=== PATIENT | male | born 1955 | race African-American/Black ===

== ENCOUNTER 2016-05-13 18:14 | Inpatient (IN) | payer MEDICAID ==
[~2016-05-13] VITALS: Ht 180.3 cm; Wt 91.2 kg
[2016-05-13] MEDS ORDERED: GLIPIZIDE5 MG ORAL (18:43)
[2016-05-13] MEDS ORDERED: METFORMIN HCL1000 M1 ORAL (18:43)
[2016-05-13 19:04] VITALS: BP 161/87
[2016-05-13] MEDS ORDERED: Heparin 5000 units/ml inj IV ONE (19:15)
[2016-05-13 19:19] LABS: BASOPHILS % (AUTO) 2.1 % (0.0-2.0); LYMPHOCYTES % (AUTO) 39.4 % (20.0-45.0); MEAN CORPUSCULAR HEMOGLOBIN 29.1 PG (27.0-31.0); MEAN CORPUSCULAR HGB CONC 31.7 G/DL (32.0-36.0); MEAN CORPUSCULAR VOLUME 92 FL (80-99); MEAN PLATELET VOLUME 8.4 FL (6.5-10.1); MONOCYTES % (AUTO) 8.2 % (1.0-10.0); NEUTROPHILS % (AUTO) 49.2 % (45.0-75.0); PLATELET COUNT 200 K/UL (150-450); RED BLOOD COUNT 5.43 M/UL (4.70-6.10); RED CELL DISTRIBUTION WIDTH 12.2 % (11.6-14.8); WHITE BLOOD COUNT 5.3 K/UL (4.8-10.8)
[2016-05-13] MEDS ORDERED: Nitroglycerin Subl 0.4mg tab (Bottle Of 25) SL ONE (19:30)
[2016-05-13 19:36] LABS: PROTHROMBIN TIME 10.5 SEC (9.30-11.50)
[2016-05-13 19:44] LABS: TROPONIN I < 0.30 ng/mL (<=0.30)
[2016-05-13 19:47] LABS: ALANINE AMINOTRANSFERASE 15 U/L (3-41); ALBUMIN/GLOBULIN RATIO 1.3 (1.0-2.7); ANION GAP 11 (5-15); ASPARTATE AMINO TRANSFERASE 18 U/L (5-40); CALCIUM 9.2 mg/dL (8.6-10.2); CARBON DIOXIDE 27 mEQ/L (20-30); CHLORIDE 98 mEQ/L (98-107); CREATININE 1.2 mg/dL (0.7-1.2); GLOMERULAR FILTRATION RATE > 60 mL/min (>60); HEMOLYSIS 4; POTASSIUM 4.4 mEQ/L (3.4-4.9); SODIUM 136 mEQ/L (135-145); TOTAL PROTEIN 7.3 g/dL (6.6-8.7)
[2016-05-13 20:10] LABS: CKMB < 1.5 ng/mL (< 6.7)
[2016-05-13 20:16] VITALS: BP 137/82
[2016-05-13 22:39] VITALS: BP 133/79
--- NOTE | 2016-05-13 23:28 | Emergency Room Report ---
History of Present Illness General Chief Complaint: Dyspnea/Respdistress Source: Patient Present Illness HPI The patient is a 60-year-old male presented after having intermittent chest pain for several weeks. The patient was noted to have increased frequency of symptoms. Patient stated that he began having a constant pain earlier in the day. The patient had the pain onset during light activity he had prior history of hypertension. As well as diabetic. Allergies: Coded Allergies: No Known Allergies (Unverified , 05/13/16) Patient History Past Medical History: see triage record Reviewed Nursing Documentation: PMH: Agreed, PSxH: Agreed Nursing Documentation-PMH Past Medical History: No History, Except For Hx Diabetes: Yes - Type II Review of Systems All Other Systems: negative except mentioned in HPI Physical Exam Vital Signs Date Time Temp Pulse Resp B/P Pulse Ox O2 Delivery O2 Flow Rate FiO2 05/13/16 18:38 98.1 91 16 163/100 99 Room Air Sp02 EP Interpretation: reviewed, normal General Appearance: normal inspection, well appearing, no apparent distress, alert, GCS 15 Head: atraumatic ENT: normal ENT inspection, hearing grossly normal, normal voice Neck: normal inspection, full range of motion, supple, no bony tend Respiratory: normal inspection, lungs clear, normal breath sounds, no respiratory distress, no retraction, no wheezing Cardiovascular #1: regular rate, rhythm, no edema Gastrointestinal: normal inspection, normal bowel sounds, non tender, soft, no guarding, no hernia Genitourinary: no CVA tenderness Musculoskeletal: normal inspection, back normal, normal range of motion Neurologic: normal inspection, alert, oriented x3, responsive, water resource agent III-XII nml as tested, speech normal Psychiatric: normal inspection, judgement/insight normal, mood/affect normal Skin: normal inspection, normal color, no rash Medical Decision Making Diagnostic Impression: Primary Impression: Chest pain Additional Impression: Unstable angina ER Course Patient is a 60-year-old male who presented for chest pain. Differential diagnosis included but was not limited to acute coronary syndrome, pulmonary embolism, pneumonia, aortic dissection, shingles, pneumothorax, aortic dissection, esophageal rupture, pericarditis. Because of complexity of patient' s case laboratory testing and imaging studies were ordered. I laboratory testing was notable for negative troponin.The patient was noted to improvement in his pain after nitroglycerin and was pain-free The patient was noted to have signs consistent with a coronary syndrome. Initial EKG showed inferior T wave inversion. Repeat EKGs after nitroglycerin and aspirin showed correction of the T wave inversion. The patient was discussed with Dr. Lunsford for inpatient management. Labs Test 05/13/16 19:06 05/13/16 23:25 White Blood Count 5.3 K/UL (4.8-10.8) Red Blood Count 5.43 M/UL (4.70-6.10) Hemoglobin 15.8 G/DL (14.2-18.0) Hematocrit 49.9 % (42.0-52.0) Mean Corpuscular Volume 92 FL (80-99) Mean Corpuscular Hemoglobin 29.1 PG (27.0-31.0) Mean Corpuscular Hemoglobin Concent 31.7 G/DL (32.0-36.0) Red Cell Distribution Width 12.2 % (11.6-14.8) Platelet Count 200 K/UL (150-450) Mean Platelet Volume 8.4 FL (6.5-10.1) Neutrophils (%) (Auto) 49.2 % (45.0-75.0) Lymphocytes (%) (Auto) 39.4 % (20.0-45.0) Monocytes (%) (Auto) 8.2 % (1.0-10.0) Eosinophils (%) (Auto) 1.0 % (0.0-3.0) Basophils (%) (Auto) 2.1 % (0.0-2.0) Prothrombin Time 10.5 SEC (9.30-11.50) Prothromb Time International Ratio 1.0 (0.9-1.1) Activated Partial Thromboplast Time 26 SEC (23-33) D-Dimer 215 ng/mL (<500) Sodium Level 136 mEQ/L (135-145) Potassium Level 4.4 mEQ/L (3.4-4.9) Chloride Level 98 mEQ/L (98-107) Carbon Dioxide Level 27 mEQ/L (20-30) Anion Gap 11 (5-15) Blood Urea Nitrogen 14 mg/dL (7-23) Creatinine 1.2 mg/dL (0.7-1.2) Estimat Glomerular Filtration Rate > 60 mL/min (>60) Glucose Level 261 mg/dL (74-106) Calcium Level 9.2 mg/dL (8.6-10.2) Total Bilirubin 0.3 mg/dL (0.0-1.2) Aspartate Amino Transf (AST/SGOT) 18 U/L (5-40) Alanine Aminotransferase (ALT/SGPT) 15 U/L (3-41) Alkaline Phosphatase 77 U/L (40-129) Total Creatine Kinase 161 U/L (38-174) Creatine Kinase MB < 1.5 ng/mL (< 6.7) Creatine Kinase MB Relative Index Troponin I < 0.30 ng/mL (<=0.30) Total Protein 7.3 g/dL (6.6-8.7) Albumin 4.2 g/dL (3.5-5.2) Globulin 3.1 g/dL Albumin/Globulin Ratio 1.3 (1.0-2.7) EKG Diagnostic Results Rate: normal Rhythm: NSR ST Segments: other - nonspecific st changes. inferior twave inversion Chest X-Ray Diagnostic Results EP Interpretation: Yes Findings: no consolidation, no effusion, no pneumothorax, no acute cardiopulmonary disease Number of Views: 1 Last Vital Signs Date Time Temp Pulse Resp B/P Pulse Ox O2 Delivery O2 Flow Rate FiO2 05/13/16 22:39 98.2 82 15 133/79 99 Room Air Status: improved Disposition: ADMITTED INPATIENT Condition: Serious Referrals: NOT CHOSEN NAKITA/,REFERRING (PCP) Daryn Kitchen May 13, 2016 23:28
[2016-05-13 23:43] LABS: APPEARANCE,URINE CLEAR; KETONES,URINE NEGATIVE (NEGATIVE); LEUKOCYTE ESTERASE ,URINE 1+ (NEGATIVE); NITRITE,URINE NEGATIVE (NEGATIVE); PH,URINE 5 (4.5-8.0); PROTEIN,URINE NEGATIVE (NEGATIVE); UROBILINOGEN,URINE NORMAL MG/DL (0.0-1.0)
[2016-05-14] VITALS: BP 144/93
[2016-05-14 00:24] LABS: BACTERIA,URINE OCCASIONAL /HPF; SQUAMOUS EPITHELIAL CELL,UR OCCASIONAL /LPF (NONE/OCC)
[2016-05-14] MEDS ORDERED: Norco 5mg/325mg tab ORAL PRN (03:30)
[2016-05-14 04:20] VITALS: BP 146/98
[2016-05-14] MEDS: GlipiZIDE 5mg tab ORAL SCH ×2 (06:12→17:12)
[2016-05-14] MEDS: metFORMIN 500mg tab ORAL SCH ×2 (06:13→17:12)
[2016-05-14] MEDS: Heparin 5000 units/ml inj SUBQ SCH ×3 (06:16→21:48)
[2016-05-14] MEDS: NovoLOG Insulin Flexpen SUBQ SCH ×4 (06:31→21:47)
[2016-05-14 07:55] VITALS: BP 137/91
[2016-05-14 09:18] LABS: BASOPHILS % (AUTO) 2.4 % (0.0-2.0); EOSINOPHILS % (AUTO) 1.1 % (0.0-3.0); LYMPHOCYTES % (AUTO) 43.9 % (20.0-45.0); MEAN CORPUSCULAR HEMOGLOBIN 29.1 PG (27.0-31.0); MEAN CORPUSCULAR HGB CONC 32.5 G/DL (32.0-36.0); MEAN CORPUSCULAR VOLUME 90 FL (80-99); MONOCYTES % (AUTO) 12.4 % (1.0-10.0); NEUTROPHILS % (AUTO) 40.2 % (45.0-75.0); PLATELET COUNT 189 K/UL (150-450); RED BLOOD COUNT 5.26 M/UL (4.70-6.10); RED CELL DISTRIBUTION WIDTH 11.9 % (11.6-14.8); WHITE BLOOD COUNT 4.4 K/UL (4.8-10.8)
[2016-05-14 09:35] LABS: ALANINE AMINOTRANSFERASE 19 U/L (3-41); ALBUMIN/GLOBULIN RATIO 1.3 (1.0-2.7); ANION GAP 13 (5-15); ASPARTATE AMINO TRANSFERASE 17 U/L (5-40); CALCIUM 9.1 mg/dL (8.6-10.2); CARBON DIOXIDE 27 mEQ/L (20-30); CHLORIDE 100 mEQ/L (98-107); CHOLESTEROL 152 mg/dL (< 200); CHOLESTEROL/HDL RATIO 3.7 (3.3-4.4); GLOMERULAR FILTRATION RATE > 60 mL/min (>60); HEMOLYSIS 6; LDL CHOLESTEROL (CALC.) 92 mg/dL (60-99); MAGNESIUM 1.9 mg/dL (1.7-2.5); PHOSPHORUS 2.7 mg/dL (2.5-4.8); POTASSIUM 4.2 mEQ/L (3.4-4.9); SODIUM 140 mEQ/L (135-145); TOTAL PROTEIN 6.9 g/dL (6.6-8.7)
[2016-05-14 11:39] VITALS: BP 148/96
[2016-05-14] MEDS ORDERED: Influenza Virus Vaccine 0.5ml IM ONE (12:00)
[2016-05-14] MEDS ORDERED: Pneumococcal Vaccine 25mcg/0.5ml IM ONE (12:30)
[2016-05-14 13:35] LABS: TROPONIN I < 0.30 ng/mL (<=0.30)
--- NOTE | 2016-05-14 13:37 | History & Physical ---
History and Physical History & Physicial Dictated for Int Med-Dr Lunsford no. [id number]. MIROSLAVA MAY May 14, 2016 13:37
--- NOTE | 2016-05-14 14:30 | Cardiac Electrophysiology PN ---
Subjective Subjective [id number]. CP. No CT. NIDDM. Newly diagnosed HTN Stress test in am. Lisinopril, echo Objective Last 24 Hour Vital Signs Date Time Temp Pulse Resp B/P Pulse Ox O2 Delivery O2 Flow Rate FiO2 05/14/16 11:39 97.6 87 20 148/96 100 Room Air 05/14/16 08:00 82 05/14/16 07:55 97.3 75 20 137/91 100 Room Air 05/14/16 04:20 97.0 72 20 146/98 98 Room Air 05/14/16 04:00 77 05/14/16 01:15 82 05/14/16 00:50 98.2 78 16 128/80 100 Room Air 05/14/16 00:00 98.0 75 20 144/93 98 Room Air 05/13/16 22:39 98.2 82 15 133/79 99 Room Air 05/13/16 20:16 98.2 82 17 137/82 99 Room Air 05/13/16 19:20 160/88 05/13/16 19:06 83 17 Room Air 05/13/16 19:04 97.9 83 17 161/87 100 Room Air 05/13/16 18:38 98.1 91 16 163/100 99 Room Air Laboratory Tests Test 05/13/16 19:06 05/13/16 23:25 05/14/16 08:35 05/14/16 08:45 White Blood Count 5.3 K/UL (4.8-10.8) 4.4 K/UL (4.8-10.8) L Red Blood Count 5.43 M/UL (4.70-6.10) 5.26 M/UL (4.70-6.10) Hemoglobin 15.8 G/DL (14.2-18.0) 15.3 G/DL (14.2-18.0) Hematocrit 49.9 % (42.0-52.0) 47.2 % (42.0-52.0) Mean Corpuscular Volume 92 FL (80-99) 90 FL (80-99) Mean Corpuscular Hemoglobin 29.1 PG (27.0-31.0) 29.1 PG (27.0-31.0) Mean Corpuscular Hemoglobin Concent 31.7 G/DL (32.0-36.0) L 32.5 G/DL (32.0-36.0) Red Cell Distribution Width 12.2 % (11.6-14.8) 11.9 % (11.6-14.8) Platelet Count 200 K/UL (150-450) 189 K/UL (150-450) Mean Platelet Volume 8.4 FL (6.5-10.1) 9.0 FL (6.5-10.1) Neutrophils (%) (Auto) 49.2 % (45.0-75.0) 40.2 % (45.0-75.0) L Lymphocytes (%) (Auto) 39.4 % (20.0-45.0) 43.9 % (20.0-45.0) Monocytes (%) (Auto) 8.2 % (1.0-10.0) 12.4 % (1.0-10.0) H Eosinophils (%) (Auto) 1.0 % (0.0-3.0) 1.1 % (0.0-3.0) Basophils (%) (Auto) 2.1 % (0.0-2.0) H 2.4 % (0.0-2.0) H Prothrombin Time 10.5 SEC (9.30-11.50) Prothromb Time International Ratio 1.0 (0.9-1.1) Activated Partial Thromboplast Time 26 SEC (23-33) D-Dimer 215 ng/mL (<500) Sodium Level 136 mEQ/L (135-145) 140 mEQ/L (135-145) Potassium Level 4.4 mEQ/L (3.4-4.9) 4.2 mEQ/L (3.4-4.9) Chloride Level 98 mEQ/L (98-107) 100 mEQ/L (98-107) Carbon Dioxide Level 27 mEQ/L (20-30) 27 mEQ/L (20-30) Anion Gap 11 (5-15) 13 (5-15) Blood Urea Nitrogen 14 mg/dL (7-23) 13 mg/dL (7-23) Creatinine 1.2 mg/dL (0.7-1.2) 1.0 mg/dL (0.7-1.2) Estimat Glomerular Filtration Rate > 60 mL/min (>60) > 60 mL/min (>60) Glucose Level 261 mg/dL (74-106) H 160 mg/dL (74-106) #H Calcium Level 9.2 mg/dL (8.6-10.2) 9.1 mg/dL (8.6-10.2) Total Bilirubin 0.3 mg/dL (0.0-1.2) 0.5 mg/dL (0.0-1.2) Aspartate Amino Transf (AST/SGOT) 18 U/L (5-40) 17 U/L (5-40) Alanine Aminotransferase (ALT/SGPT) 15 U/L (3-41) 19 U/L (3-41) Alkaline Phosphatase 77 U/L (40-129) 70 U/L (40-129) Total Creatine Kinase 161 U/L (38-174) Creatine Kinase MB < 1.5 ng/mL (< 6.7) Creatine Kinase MB Relative Index Troponin I < 0.30 ng/mL (<=0.30) < 0.30 ng/mL (<=0.30) Total Protein 7.3 g/dL (6.6-8.7) 6.9 g/dL (6.6-8.7) Albumin 4.2 g/dL (3.5-5.2) 4.0 g/dL (3.5-5.2) Globulin 3.1 g/dL 2.9 g/dL Albumin/Globulin Ratio 1.3 (1.0-2.7) 1.3 (1.0-2.7) Urine Color Yellow Urine Appearance Clear Urine pH 5 (4.5-8.0) Urine Specific [place] 1.020 (1.005-1.035) Urine Protein Negative (NEGATIVE) Urine Glucose (UA) 3+ (NEGATIVE) H Urine Ketones Negative (NEGATIVE) Urine Occult Blood Negative (NEGATIVE) Urine Nitrite Negative (NEGATIVE) Urine Bilirubin Negative (NEGATIVE) Urine Urobilinogen Normal MG/DL (0.0-1.0) Urine Leukocyte Esterase 1+ (NEGATIVE) H Urine RBC 2-4 /HPF (0 - 0) H Urine WBC 10-15 /HPF (0 - 0) H Urine Squamous Epithelial Cells Occasional /LPF Urine Bacteria Occasional /HPF (NONE) Urine Opiates Screen Negative (NEGATIVE) Urine Barbiturates Screen Negative (NEGATIVE) Phencyclidine (PCP) Screen Negative (NEGATIVE) Urine Amphetamines Screen Negative (NEGATIVE) Urine Benzodiazepines Screen Negative (NEGATIVE) Urine Cocaine Screen Negative (NEGATIVE) Urine Marijuana (THC) Screen Negative (NEGATIVE) Phosphorus Level 2.7 mg/dL (2.5-4.8) Magnesium Level 1.9 mg/dL (1.7-2.5) Triglycerides Level 95 mg/dL (< 150) Cholesterol Level 152 mg/dL (< 200) LDL Cholesterol 92 mg/dL (60-99) HDL Cholesterol 41 mg/dL (> 60) Cholesterol/HDL Ratio 3.7 (3.3-4.4) YAMILETH FRANKEL May 14, 2016 14:30
--- NOTE | 2016-05-14 15:03 | Cardiology Report ---
APPROVED REPORT EKG Measurement Heart [id number] Normal sinus rhythm Nonspecific ST and T wave abnormality Abnormal ECG
[2016-05-14 16:00] VITALS: BP 144/91
--- NOTE | 2016-05-14 18:18 | History and Physical Report ---
DATE OF ADMISSION: 05/13/2016 CHIEF COMPLAINT: The patient is a 60-year-old male with history of diabetes, who presents with chief complaint of chest pain. HISTORY OF PRESENT ILLNESS: The patient has a history of diabetes. The patient has not been taking his glipizide for about seven to eight months. The patient states he lost his insurance. History of present illness began on 05/11/2016. The patient states he was watching a ball games on TV. The patient began to experience on and off chest pain. Chest pain is substernal. The patient states the chest pain feels like "gas". The patient presented to [place] emergency room. The patient was admitted for chest pain to rule out acute myocardial infarction. PAST MEDICAL HISTORY: Significant for type 2 diabetes. PAST SURGICAL HISTORY: The patient denies. MEDICATIONS: Current medications, 1. Metformin 1000 mg one tablet p.o. twice daily. 2. Glipizide 5 mg one tablet p.o. twice daily, however, the patient is not taking glipizide in seven to eight months. ALLERGIES: No known drug allergies. SOCIAL HISTORY: The patient has a long time girlfriend, who is present during the interview. The patient is unemployed. The patient admits to tobacco use of one-quarter pack per day. The patient admits to rare alcohol use. FAMILY HISTORY: Significant for colon cancer in a sibling. Family history negative for diabetes or coronary artery disease. REVIEW OF SYSTEMS: Constitutional: The patient denies weight loss or weight gain. The patient denies fevers or chills. HEENT: The patient denies ear or throat pain. Cardiovascular: The patient complains of chest pain, as above. The patient denies palpitations. Abdomen: The patient denies nausea, vomiting, or constipation. Genitourinary: The patient denies dysuria or increased frequency of urination. Neuromuscular: The patient seizures or generalized weakness. PHYSICAL EXAMINATION: VITAL SIGNS: Temperature 97.0 degrees, respirations 20, blood pressure 146/98, and pulse 72. GENERAL: The patient is a well-developed and well-nourished male, in no apparent distress. HEENT: Eyes, pupils are equal and responsive to light and accommodation. Extraocular movements are intact. NECK: Supple without lymphadenopathy. CHEST: Lungs are clear to auscultation bilaterally without wheezes or rales. CARDIOVASCULAR: Regular rhythm and rate. S1 and S2 normal without murmurs, rubs, or gallops. ABDOMEN: Soft, nontender, and nondistended. Positive bowel sounds. No evidence of hepatosplenomegaly. Currently, no rebound or guarding noted. EXTREMITIES: Negative for clubbing, cyanosis, or or edema. RECTAL: Refused. GENITAL: Refused. NEUROLOGIC: Cranial nerves II through XII are grossly intact without focal deficits. Motor strength is 5/5 bilaterally. Deep tendon reflexes 2+ plantar. LABORATORY AND DIAGNOSTIC DATA: WBC 5.3, hemoglobin 15.8, hematocrit 49.9, and platelets 200,000. Sodium 136, potassium 4.4, chloride 98, CO2 25, BUN 14, creatinine 1.2, and glucose elevated at 261. Troponin less than 0.3. Chest x-ray is pending. ASSESSMENT: This is a 60-year-old male 1. Chest pain. 2. Diabetes type 2. TREATMENT: 1. Chest pain. Cardiology consultation with Dr. Nimesh Neumann. A Cardiolite stress test is pending. Serial troponin levels to be run. Chest pain may be secondary to coronary artery disease, as the patient has a risk factor including diabetes. We will follow recommendation of Cardiology. 2. Diabetes type 2. Continue metformin and glipizide as above and NovoLog sliding scale has been instituted. Buster Gallardo M.D. DR: MURALI JOB#: [id number] CC:
--- NOTE | 2016-05-14 19:48 | Consultation ---
DATE OF CONSULTATION: 05/14/2016 CARDIOLOGY CONSULTATION CONSULTING PHYSICIAN: Nimesh Neumann M.D. REFERRING PHYSICIAN: Matthew Lunsford M.D. REASON FOR CONSULTATION: Chest pain. HISTORY OF PRESENT ILLNESS: The patient is a 60-year-old gentleman with history of plf-[id number] diabetes, who presented to the hospital with intermittent chest pain of several weeks duration has become more and more frequent. On day of admission, the patient had constant chest pain that started after a light activity prior to this event. The patient's EKG showed sinus rhythm with nonspecific ST-T wave abnormality. The patient was admitted to rule out myocardial infarction. His blood pressure in the emergency room was also 162/100. PAST MEDICAL HISTORY: Includes nse-[id number] diabetes. FAMILY HISTORY: Noncontributory. SOCIAL HISTORY: He lives at home. Does not smoke or drink alcohol. Denies using any illegal drugs. REVIEW OF SYSTEMS: Review of systems was thoroughly performed and was negative other what was mentioned in history of present illness. PHYSICAL EXAMINATION: VITAL SIGNS: Show blood pressure of 148/96, pulse 87, respirations 20, and temperature 97.6 degrees. HEAD AND NECK: Showed no JVD. LUNGS: Clear. CARDIOVASCULAR: Show regular S1 and S2 with no gallop or murmur. ABDOMEN: Soft and nontender. EXTREMITIES: No pitting edema. LABORATORY AND DIAGNOSTIC DATA: EKG sinus rhythm with nonspecific ST-T wave abnormalities. White count of 4.4, hemoglobin 15.2, hematocrit 47.2, and platelet count 189,000. Sodium 140, potassium 4.2, BUN 30, creatinine 1, and glucose of 160. Troponin is negative x2. ASSESSMENT AND PLAN: 1. Chest pain. The patient was ruled out for myocardial infarction. EKG showed nonspecific ST-T wave abnormality. His urine toxicology screen is negative. In view of patient's newly diagnosed hypertension and diabetes who is scheduled for nuclear stress test for further evaluation. 2. Newly diagnosed hypertension as the patient is on lisinopril as well in view of patient's diabetes. 3. Diabetes on metformin and glipizide. Thank you very much, Dr. Lunsford, for allowing me to participate in the care of this patient. Please do not hesitate to contact me for any questions regarding my evaluation. Nimesh Neumann M.D. DR: CARMEN JOB#: [id number] CC:
[2016-05-14 20:00] VITALS: BP 153/100
[2016-05-15 00:47] VITALS: BP 153/99
[2016-05-15 04:14] VITALS: BP 150/93
[2016-05-15] MEDS: GlipiZIDE 5mg tab ORAL SCH ×2 (06:00→17:46)
[2016-05-15] MEDS: metFORMIN 500mg tab ORAL SCH ×2 (06:00→17:46)
[2016-05-15] MEDS: NovoLOG Insulin Flexpen SUBQ SCH ×3 (06:05→17:47)
[2016-05-15] MEDS: Heparin 5000 units/ml inj SUBQ SCH ×2 (06:05→14:46)
[2016-05-15 08:05] VITALS: BP 128/78
[2016-05-15 08:10] LABS: BASOPHILS % (AUTO) 2.5 % (0.0-2.0); LYMPHOCYTES % (AUTO) 31.1 % (20.0-45.0); MEAN CORPUSCULAR HEMOGLOBIN 30.4 PG (27.0-31.0); MEAN CORPUSCULAR HGB CONC 33.3 G/DL (32.0-36.0); MEAN CORPUSCULAR VOLUME 91 FL (80-99); MEAN PLATELET VOLUME 8.4 FL (6.5-10.1); NEUTROPHILS % (AUTO) 57.4 % (45.0-75.0); PLATELET COUNT 169 K/UL (150-450); RED BLOOD COUNT 5.14 M/UL (4.70-6.10); RED CELL DISTRIBUTION WIDTH 12.3 % (11.6-14.8); WHITE BLOOD COUNT 4.7 K/UL (4.8-10.8)
[2016-05-15 08:24] LABS: TROPONIN I < 0.30 ng/mL (<=0.30)
[2016-05-15 08:31] LABS: ANION GAP 13 (5-15); CALCIUM 9.2 mg/dL (8.6-10.2); CARBON DIOXIDE 25 mEQ/L (20-30); CHLORIDE 100 mEQ/L (98-107); CHOLESTEROL 170 mg/dL (< 200); CHOLESTEROL/HDL RATIO 3.6 (3.3-4.4); GLOMERULAR FILTRATION RATE > 60 mL/min (>60); HEMOLYSIS 8; LDL CHOLESTEROL (CALC.) 103 mg/dL (60-99); POTASSIUM 4.3 mEQ/L (3.4-4.9); SODIUM 138 mEQ/L (135-145)
[2016-05-15] MEDS ORDERED: Lisinopril 10mg tab ORAL SCH (09:00)
[2016-05-15 11:43] VITALS: BP 138/88
--- NOTE | 2016-05-15 15:31 | Diagnostic Imaging Report ---
Indications: 60-year-old male inpatient presents with chest pain. Technique: The examination was supervised by Dr. Bridges. Baseline electrocardiogram was recorded. The patient was exercised on a treadmill per Rickie protocol for a duration of 7 minutes 19 seconds, exceeding target stress level. Continuous electrocardiography, heart rate, blood pressure monitoring performed. Immediate SPECT imaging of the left ventricular myocardium was performed in multiple planes with the patient in supine position, following intravenous administration of 82 mCi 99 M technetium-sestaMIBI. Cinegraphic images were generated for wall motion analysis. Left ventricular ejection fraction was calculated. Similar imaging was performed at rest immediately prior with intravenous administration of 10.8 mCi 99 M technetium-sestaMIBI. Findings: Comparison: None. Both stress and rest images demonstrate left ventricular myocardial perfusion to be intact. No areas of abnormally decreased or absent perfusion are demonstrated. Cinegraphic images demonstrate no areas of wall motion abnormality. Ejection fraction is estimated at 71%. The patient developed no acute complaints or {changes during exercise stress. Supervising customer project manager's conclusions are that clinical response to exercise stress is nonischemic while electrocardiographic response is likewise nonischemic. IMPRESSION: No evidence of exercise-induced left ventricular myocardial ischemia or prior infarct LVEF within normal limits. This correlates with supervising customer project manager's conclusions.
[2016-05-15 16:00] VITALS: BP 132/83
--- NOTE | 2016-05-15 16:20 | Discharge Summary ---
Discharge Summary Hospital Course Date of Admission May 13, 2016 at 21:12 Date of Discharge Admitting Diagnosis Acute Coronary Sydrome HPI Kelvin Kendrick is a 60 year old male who was admitted on May 13, 2016 at 21:12 for Acute Coronary Syndrome Hospital Course Dictated for Int Med-Dr Lunsford no. [id number]. Discharge Discharge Disposition Patient was discharged to Discharge Diagnoses: MIROSLAVA MAY May 15, 2016 16:20
--- NOTE | 2016-05-15 16:26 | Cardiac Electrophysiology PN ---
Assessment/Plan Status Narrative No evidence of exercise-induced left ventricular myocardial ischemia or prior infarct LVEF within normal limits. Assessment/Plan 1. Chest pain. The patient was ruled out for myocardial infarction. EKG showed nonspecific ST-T wave abnormality. His urine toxicology screen is negative.HAd nuclear stress test today that showed no ischemia. 2. Newly diagnosed hypertension Continue lisinopril 3. Diabetes on metformin and glipizide. OK to DC DW Dr Gallardo Subjective Subjective Comfortable in NAD. No chest pain or SOB. HAd nuclear stress test done. Objective Last 24 Hour Vital Signs Date Time Temp Pulse Resp B/P Pulse Ox O2 Delivery O2 Flow Rate FiO2 05/15/16 16:00 97.9 78 18 132/83 98 Room Air 05/15/16 12:00 86 05/15/16 11:43 97.5 75 20 138/88 100 Room Air 05/15/16 09:28 128/78 05/15/16 08:05 97.7 79 20 128/78 100 Room Air 05/15/16 08:00 86 05/15/16 04:14 98.6 87 20 150/93 98 Room Air 05/15/16 04:00 84 05/15/16 00:47 97.9 86 21 153/99 99 Room Air 05/15/16 00:00 84 05/14/16 20:00 98.1 82 19 153/100 99 Room Air 05/14/16 20:00 80 Intake and Output 05/14/16 05/15/16 19:00 07:00 Intake Total 490 ml 240 ml Balance 490 ml 240 ml Intake Oral 490 ml 240 ml # Voids 2 2 Laboratory Tests Test 05/15/16 07:45 White Blood Count 4.7 K/UL (4.8-10.8) L Red Blood Count 5.14 M/UL (4.70-6.10) Hemoglobin 15.6 G/DL (14.2-18.0) Hematocrit 47.0 % (42.0-52.0) Mean Corpuscular Volume 91 FL (80-99) Mean Corpuscular Hemoglobin 30.4 PG (27.0-31.0) Mean Corpuscular Hemoglobin Concent 33.3 G/DL (32.0-36.0) Red Cell Distribution Width 12.3 % (11.6-14.8) Platelet Count 169 K/UL (150-450) Mean Platelet Volume 8.4 FL (6.5-10.1) Neutrophils (%) (Auto) 57.4 % (45.0-75.0) Lymphocytes (%) (Auto) 31.1 % (20.0-45.0) Monocytes (%) (Auto) 8.0 % (1.0-10.0) Eosinophils (%) (Auto) 1.0 % (0.0-3.0) Basophils (%) (Auto) 2.5 % (0.0-2.0) H Sodium Level 138 mEQ/L (135-145) Potassium Level 4.3 mEQ/L (3.4-4.9) Chloride Level 100 mEQ/L (98-107) Carbon Dioxide Level 25 mEQ/L (20-30) Anion Gap 13 (5-15) Blood Urea Nitrogen 11 mg/dL (7-23) Creatinine 1.0 mg/dL (0.7-1.2) Estimat Glomerular Filtration Rate > 60 mL/min (>60) Glucose Level 184 mg/dL (74-106) H Calcium Level 9.2 mg/dL (8.6-10.2) Troponin I < 0.30 ng/mL (<=0.30) Triglycerides Level 99 mg/dL (< 150) Cholesterol Level 170 mg/dL (< 200) LDL Cholesterol 103 mg/dL (60-99) H HDL Cholesterol 47 mg/dL (> 60) Cholesterol/HDL Ratio 3.6 (3.3-4.4) Thyroid Stimulating Hormone (TSH) 3.050 uIU/mL (0.300-4.500) Free Thyroxine 1.00 ng/dL (0.86-1.85) Microbiology Date/Time Source Procedure Growth Status 05/13/16 23:25 Urine,Clean Catch Urine Culture - Preliminary Resulted Objective HEAD AND NECK: Showed no JVD. LUNGS: Clear. CARDIOVASCULAR: Show regular S1 and S2 with no gallop or murmur. ABDOMEN: Soft and nontender. EXTREMITIES: No pitting edema. YAMILETH FRANKEL May 15, 2016 16:26
[2016-05-15] MEDS ORDERED: LISINOPRIL10 MG ORAL (16:43)
[2016-05-15] MEDS ORDERED: NS 275ml ONE (18:04)
--- NOTE | 2016-05-15 21:09 | Cardiology Report ---
APPROVED REPORT EXAM: Two-dimensional and M-mode echocardiogram with Doppler and color Doppler. INDICATION Chest Pain M-Mode DIMENSIONS IVSd1.5 (0.7-1.1cm)Left Atrium (MM)4.6 (1.6-4.0cm) LVDd4.1 (3.5-5.6cm)Aortic Root2.9 (2.0-3.7cm) PWd1.5 (0.7-1.1cm)Aortic Cusp Exc.1.8 (1.5-2.0cm) LVDs2.5 (2.5-4.0cm) PWs2.2 cm Normal left ventricular chamber size, systolic function and wall motion. Left ventricular ejection fraction estimated to be 65 %. Mild left ventricular hypertrophy. Anterior Echo-free space, may be due to pericardial fat or effusion. Mild left atrial enlargement. Right cardiac chamber sizes are within normal limits. Mild focal aortic valve sclerosis with adequate cusp excursion. Mildly thickened mitral valve leaflets with normal excursion. Mitral annulus and aortic root calcification. Normal pulmonic valve structure. Normal tricuspid valve structure. IVC at normal size with physiologic collapse. A color flow and spectral Doppler study was performed and revealed: Trace mitral regurgitation. Mitral diastolic velocities suggest reduced left ventricular relaxation c/w mild LV diastolic dysfunction (Grade I ). Trace tricuspid regurgitation. Tricuspid systolic velocities suggests peak right ventricular systolic pressure of 25 mmHg.
--- NOTE | 2016-05-16 03:37 | Discharge Summary ---
DATE OF ADMISSION: 05/13/2016 DATE OF DISCHARGE: 05/15/2016 ADMITTING DIAGNOSES: 1. Chest pain. 2. Diabetes type 2. DISCHARGE DIAGNOSES: 1. Chest pain. 2. Diabetes type 2. 3. Hypertension. HOSPITAL COURSE BY PROBLEM LIST: 1. Chest pain. A cardiology consultation was obtained by Dr. Nimesh Neumann. The patient underwent a myocardial perfusion nuclear medicine scan on 05/14/2016. Ejection fraction was 71%. There was no ischemia demonstrated. Chest pain was thought to be secondary to reflux or pleuritic-type chest pain. Chest pain is considered to be atypical. The patient to follow up with Dr. Neumann as an outpatient. Chest pain was not due to cardiac ischemia. 2. Diabetes type 2. The patient was placed on metformin 1000 mg one tablet p.o. twice daily. The patient also was placed on glipizide 5 mg one tablet p.o. twice daily. The patient had run out of his glipizide at home. The patient was also placed on a NovoLog sliding scale. Blood sugars were well controlled during hospitalization. The patient is to follow up with Dr. Matthew Lunsford in one week. 3. Hypertension. The patient was placed on lisinopril 10 mg one tablet p.o. daily. Blood pressure is well controlled during hospitalization. DISCHARGE MEDICATIONS: Please refer to discharge medication list. DISCHARGE INSTRUCTIONS: DISPOSITION: The patient was discharged home today, 05/15/2016. FOLLOW UP: The patient is to follow up with Dr. Matthew Lunsford in one week. Buster Gallardo M.D. DR: Isai JOB#: [id number] CC:
--- NOTE | 2016-05-18 10:32 | Diagnostic Imaging Report ---
Indication: SOB, chest pain Technique: One view of the chest Comparison: none Findings: Lungs and pleural spaces are clear. Heart size is normal. Impression: No acute process
== END 2016-05-15 18:05 | disposition home or self-care (01) | DRG 203 ==
LOC: EMR 19:32 → 2E 21:12 → EDBEDREQSVC 21:28 → EDBEDREQ 22:25 → EDBEDREQSVC 22:31 → EDBEDREQ 23:53 → 2E 05-14 00:50
DX: R07.89 Other chest pain (principal); I10 Essential (primary) hypertension; E11.9 Type 2 diabetes mellitus without complications; K21.9 Gastro-esophageal reflux disease without esophagitis; R07.81 Pleurodynia
CPT/HCPCS: 36415; 71010; 78452; 80048; 80053; 80061; 80300; 81003; 82550; 82553; 82962; 83735; 84100; 84439; 84443; 84484; 85025; 85379; 85610; 85730; 87086; 90732; 93005; 93017; 93306; J1815; Q2036

== ENCOUNTER 2016-07-17 19:01 | Emergency (ER) | payer MEDICAID, OTHER ==
[~2016-07-17] VITALS: Ht 180.3 cm; Wt 88.5 kg
[~2016-07-17 19:01] MED LIST: GLIPIZIDE5 MG ORAL; LISINOPRIL10 MG ORAL; METFORMIN HCL1000 M1 ORAL
--- NOTE | 2016-07-17 21:13 | Emergency Room Report ---
History of Present Illness General Chief Complaint: General Complaint Source: Patient (Elke Zheng) Present Illness HPI 60-year-old male presents emergency department complaining of dizziness intermittently times one week in addition to pain in the back of his neck and headache rated as 8/10 severity. Patient denies nausea or vomiting. Patient states that it he feels both off-balance in addition to describing episodes of vertigo that were precipitated with turning of his head however he states it does not happen every time. Patient denies recent head injury patient denies syncope or loss of consciousness. He states that his PCP prescribed and meclizine for which he did not take. Patient presents for evaluation of his symptoms. He denies unilateral weakness or paresthesias. Denies visual changes. Denies CP, Palpitations, LOC, AMS, dizziness, Changes in Vision, Sensation, paresthesias, or a sudden severe headache. (Elke Zheng) Allergies: Coded Allergies: No Known Allergies (Unverified , 05/13/16) Patient History Past Medical History: see triage record Past Surgical History: none Pertinent Family History: none Immunizations: UTD Reviewed Nursing Documentation: PMH: Agreed, PSxH: Agreed (Elke Zheng) Nursing Documentation-PMH Past Medical History: No History, Except For Hx Cardiac Problems: No Hx Hypertension: Yes Hx Diabetes: Yes Hx Cancer: No Hx Gastrointestinal Problems: No Hx Neurological Problems: No (Elke Zheng) Review of Systems All Other Systems: negative except mentioned in HPI (Elke Zheng) Physical Exam Vital Signs Date Time Temp Pulse Resp B/P Pulse Ox O2 Delivery O2 Flow Rate FiO2 07/17/16 19:35 98.1 99 16 134/90 100 Room Air Sp02 EP Interpretation: reviewed, normal General Appearance: no apparent distress, alert, GCS 15, non-toxic Head: normocephalic, atraumatic Eyes: bilateral eye EOMI, bilateral eye PERRL, bilateral eye normal inspection ENT: hearing grossly normal, normal pharynx, no angioedema, normal voice Neck: full range of motion, no meningismus, no bony tend, supple/symm/no masses Respiratory: lungs clear, normal breath sounds, speaking full sentences Cardiovascular #1: regular rate, rhythm, no edema Musculoskeletal: back normal, gait/station normal, normal range of motion, non- tender Neurologic: alert, oriented x3, responsive, motor strength/tone normal - equal data management strength, sensory intact, cerebellar normal, normal gait, speech normal, no pronator, other - Negative Helm's , MALIA-Hallpike not tested, pt. is in chair area Psychiatric: judgement/insight normal, memory normal, mood/affect normal, no suicidal/homicidal ideation Skin: normal color, no rash, warm/dry, well hydrated Lymphatic: no adenopathy (Elke Zheng) Medical Decision Making PA Attestation Dr. Landrum is my supervising Physician whom patient management has been discussed with. (Elke Zheng) Diagnostic Impression: Primary Impression: Dizzinesses Additional Impressions: Vertigo Renal insufficiency Hyperglycemia due to type 2 diabetes mellitus Qualified Codes: E11.65 - Type 2 diabetes mellitus with hyperglycemia ER Course 60-year-old male presents emergency department complaining of dizziness intermittently times one week in addition to pain in the back of his neck and headache rated as 8/10 severity. Patient denies nausea or vomiting. Patient states that it he feels both off-balance in addition to describing episodes of vertigo that were precipitated with turning of his head however he states it does not happen every time. Patient denies recent head injury patient denies syncope or loss of consciousness. He states that his PCP prescribed and meclizine for which he did not take. Patient presents for evaluation of his symptoms. He denies unilateral weakness or paresthesias. Denies visual changes. Ddx considered but are not limited to Mnire's, BPPV, labyrinthitis, cerebellar stroke, hypovolemia, cardiac cause. Vital signs: are WNL, pt. is afebrile H&PE are most consistent with :possible BPPV will do imaging due to intermittent symptoms, and PARISH with no response to previously prescribed meclizine. ORDERS: -CT head no contrast- negative for ICH, EDEMA, or mass -CMP: pending ED INTERVENTIONS: -25mg Meclizine DISCHARGE: At this time pt. is stable for d/c to home. Will provide printed patient care instructions, and any necessary prescriptions. Care plan and follow up instructions have been discussed with the patient prior to discharge. (Zheng,Elke P.A.) ER Course I saw this patient dependent of the PA. He present with dizziness the last several days. Worse when he turned his head a certain way. Described as room spinning. No trauma. Had a cold symptom about 2 weeks ago. Denies any chest pain, slurred speech or focal deficit. (MAYDA LLAMAS M.D.) Last Vital Signs Date Time Temp Pulse Resp B/P Pulse Ox O2 Delivery O2 Flow Rate FiO2 07/17/16 19:35 98.1 99 16 134/90 100 Room Air (Elke Zheng) Status: improved (MAYDA LLAMAS M.D.) Disposition: HOME, SELF-CARE Condition: Stable Signed Out To: Dr. Llamas (Elke Zheng) Scripts Meclizine Hcl* (MECLIZINE*) 25 Mg Tablet 25 MG ORAL THREE TIMES A DAY, #21 TAB Prov: MAYDA LLAMAS M.D. 07/17/16 Referrals: [facility] (PCP) Additional Instructions: Followup with your DrMame in 7 days. Return for increasing pain, fever, chills, or any concern. Take your blood pressure and diabetes medication. Cut down on the fat and salt in your diet. Elke Zheng Jul 17, 2016 21:13 MAYDA LLAMAS M.D. Jul 17, 2016 22:12
[2016-07-17 21:15] LABS: CREATININE 1.5 mg/dL (0.7-1.2); GLOMERULAR FILTRATION RATE 57.8 mL/min (>60); POTASSIUM 4.5 mEQ/L (3.4-4.9)
[2016-07-17] MEDS ORDERED: Meclizine 25mg tab ORAL PRN (21:15)
[2016-07-17] MEDS ORDERED: MECLIZINE HCL25 MG ORAL (22:11)
[2016-07-17 22:25] VITALS: BP 137/91
--- NOTE | 2016-07-18 09:41 | Diagnostic Imaging Report ---
Indication: Headache Technique: Contiguous 5 mm thick transaxial imaging of the head obtained in a Siemens Sensation [address] scanner. Soft tissue and bone windows generated. Total Dose length Product (DLP): [address] Dose Index Volume (CTDIvol): 70.38 mGy Comparison: none Findings: The size and configuration of the cortical sulci, basal cisterns, and ventricles are within normal limits for age. There is no mass effect, midline shift, or edema identified. There is no evidence of acute hemorrhage or abnormal intra-axial or extra-axial fluid collections. The bones and soft tissues are unremarkable. Impression: No mass effect, edema or acute bleed. The CT scanner at [facility] is accredited by the [employer] and the scans are performed using protocols designed to limit radiation exposure to as low as reasonably achievable to attain images of sufficient resolution adequate for diagnostic evaluation.
== END 2016-07-17 22:25 | disposition home or self-care (01) ==
LOC: EMR 19:53
DX: R42 Dizziness and giddiness (principal); N28.9 Disorder of kidney and ureter, unspecified; E11.65 Type 2 diabetes mellitus with hyperglycemia; I10 Essential (primary) hypertension
CPT/HCPCS: 36415; 70450; 80048; 99284